=== PATIENT | male | born 1975 | race Two or more races ===

== ENCOUNTER 2016-11-26 09:54 | Emergency (ER) | payer SELFPAY ==
[2016-11-26] MEDS ORDERED: ONDANSETRON 4 MG ODT TAB ONE (10:56)
== END 2016-11-26 11:50 | disposition home or self-care (01) ==
LOC: ED 09:54
DX: R11.10 Vomiting, unspecified (principal); R19.7 Diarrhea, unspecified; R10.9 Unspecified abdominal pain
CPT/HCPCS: 99282; 99283; A9270